=== PATIENT | female | born 1980 | race Caucasian/White ===

== ENCOUNTER 2018-08-01 01:48 | Observation (INO) | payer OTHER ==
[2018-08-01] MEDS ORDERED: Sodium Chloride 0.9% 1,000 ML IV STA (02:20)
[2018-08-01] MEDS ORDERED: Morphine 2 mg/ml ISec IVP STA (02:20)
--- NOTE | 2018-08-01 02:26 | ED PDOC ---
Arrival/HPI - General Chief Complaint: Abdominal Pain Time Seen by Provider: 08/01/18 01:56 Historian: Patient - History of Present Illness Narrative History of Present Illness (Text): 08/01/18 02:23 38 year old female, whose past medical history includes renal colic, presents to the emergency department complaining of onset of right flank pain that radiates to the abdomen that began this evening. Patient states she took Tylenol with no relief. Patient reports urinary urgency, but denies any fever, chills, chest pain, shortness of breath, nausea, vomiting, diarrhea, back pain, neck pain, headache, dizziness, or any other complaints. Time/Duration: Other (this evening) Symptom Onset: Sudden Symptom Course: Unchanged Activities at Onset: Light Context: Home Past Medical History - Provider Review Nursing Documentation Reviewed: Yes - Psychiatric Hx Substance Use: No Family/Social History - Physician Review Nursing Documentation Reviewed: Yes Family/Social History: No Known Family HX Smoking Status: Never Smoked Hx Alcohol Use: No Hx Substance Use: No Allergies/Home Meds Allergies/Adverse Reactions: Allergies No Known Allergies Allergy (Verified 08/01/18 01:56) Review of Systems - Physician Review All systems were reviewed & negative as marked: Yes - Review of Systems Constitutional: absent: Fevers, Other (Chills) Cardiovascular: absent: Chest Pain Gastrointestinal: Abdominal Pain. absent: Diarrhea, Nausea, Vomiting Genitourinary Female: Other (urinary urgency ) Musculoskeletal: Back Pain. absent: Neck Pain Neurological: absent: Headache, Dizziness Physical Exam Vital Signs Reviewed: Yes Vital Signs Temp Pulse Resp BP Pulse Ox 08/01/18 02:13 98.3 F 67 18 138/77 97 Temperature: Afebrile Blood Pressure: Normal Pulse: Regular Respiratory Rate: Normal Appearance: Positive for: Well-Appearing, Non-Toxic, Comfortable Pain Distress: Mild Mental Status: Positive for: Alert and Oriented X 3 - Systems Exam Head: Present: Atraumatic, Normocephalic Pupils: Present: PERRL Extroacular Muscles: Present: EOMI Conjunctiva: Present: Normal Mouth: Present: Moist Mucous Membranes Neck: Present: Normal Range of Motion Respiratory/Chest: Present: Clear to Auscultation, Good Air Exchange. No: Respiratory Distress, Accessory Muscle Use Cardiovascular: Present: Regular Rate and Rhythm, Normal S1, S2. No: Murmurs Abdomen: No: Tenderness, Distention, Peritoneal Signs Back: Present: CVA Tenderness (right CVA tenderness) Upper Extremity: Present: Normal Inspection. No: Cyanosis, Edema Lower Extremity: Present: Normal Inspection. No: Edema Neurological: Present: GCS=15, CN II-XII Intact, Speech Normal Skin: Present: Warm, Dry, Normal Color. No: Rashes Psychiatric: Present: Alert, Oriented x 3, Normal Insight, Normal Concentration Medical Decision Making ED Course and Treatment: 08/01/18 02:27 Impression: 38 year old female presents complaining of onset of right flank pain that radiates to the abdomen which began this evening. Plan: -- CT Abd & Pelvis w/o contrast -- Labs -- Morphine, IV Fluids, Toradol, Zofran Inj -- Reassess and disposition Progress Notes: EXAM: CT SCAN OF THE ABDOMEN AND PELVIS WITHOUT ORAL OR IV CONTRAST. Electronically signed on Aug 01, 2018 3:50:16 AM EDT by: Susie Quintanilla M.D FINDINGS: The visualized lung bases are unremarkable. Normal unenhanced liver. Normal gallbladder and extrahepatic biliary system. Normal unenhanced spleen. Normal pancreas. Normal bilateral adrenal glands. Bilateral nonobstructing renal stones with the largest measuring 12 mm. Normal size of the right kidney. There is no right renal mass. There is no right hydronephrosis. 6.5 mm obstructing stone in the distal third of the right ureter. Mild right hydroureteronephrosis. Normal size of the left kidney. There is no left renal mass. There is no left hydronephrosis. Normal visualized left ureter. Surgical changes of the visualized stomach. Normal small intestine. Uncomplicated diverticulosis of the colon. The appendix is visualized and appears normal. There is no demonstrated peritoneal fluid. Normal abdominal aorta. Normal inferior vena cava. Normal retroperitoneum. Normal urinary bladder. There is no pelvic mass lesion or lymphadenopathy. There is no pelvic fluid. Normal abdominal wall. Normal osseous structures. IMPRESSION: Bilateral nephrolithiasis. Obstructing stone of the distal right ureter. 08/01/18 04:03 Case discussed with medical insurance claims processor and Dr. Bernstein who is aware and agrees with the plan. Accept's patient into hospitalist service. - Lab Interpretations I have reviewed the lab results: Yes - RAD Interpretation Radiology Orders: 08/01/18 02:19 ABD & PELVIS W/O PO OR IV CONT [CT] Stat - Medication Orders Current Medication Orders: Sodium Chloride (Sodium Chloride 0.9%) 1,000 mls @ 999 mls/hr IV .Q1H1M STA Stop: 08/01/18 03:20 Discontinued Medications Ketorolac Tromethamine (Toradol) 30 mg IVP ONCE ONE Stop: 08/01/18 02:21 Morphine Sulfate (Morphine) 2 mg IVP STAT STA Stop: 08/01/18 02:21 Ondansetron HCl (Zofran Inj) 4 mg IVP ONCE ONE Stop: 08/01/18 02:21 - Scribe Statement The provider has reviewed the documentation as recorded by the Sanaz Leo Provider Scribe Attestation: All medical record entries made by the Veroniqueibrigo were at my direction and personally dictated by me. I have reviewed the chart and agree that the record accurately reflects my personal performance of the history, physical exam, medical decision making, and the department course for this patient. I have also personally directed, reviewed, and agree with the discharge instructions and disposition. Disposition/Present on Arrival - Present on Arrival Any Indicators Present on Arrival: No History of DVT/PE: No History of Uncontrolled Diabetes: No Urinary Catheter: No History of Decub. Ulcer: No History Surgical Site Infection Following: None - Disposition Have Diagnosis and Disposition been Completed?: Yes Diagnosis: Renal colic, Intractable pain Disposition: HOSPITALIZED Disposition Time: 03:57 Patient Plan: Observation Patient Problems: Current Active Problems Problem Status Onset Intractable pain Acute Renal colic Acute Condition: STABLE
[2018-08-01 02:42] LABS: MEAN CELL VOLUME 84.2 fl (80.0-105.0); MEAN CORPUSCULAR HEMOGLOBIN 29.1 pg (25.0-35.0); MEAN CORPUSCULAR HGB CONC 34.6 g/dl (31.0-37.0); MEAN PLATELET VOLUME 10.3 fl (7.0-11.0); RBC 4.81 10^6/uL (3.5-6.1); RED CELL DISTRIBUTION WIDTH 12.5 % (11.5-14.5); WHITE BLOOD COUNT 9.2 10^3/uL (4.5-11.0)
[2018-08-01] MEDS ORDERED: Morphine 4 mg/ml ISec IVP STA ×3 (03:25→11:17)
[2018-08-01 03:41] LABS: ALB/GLOB RATIO 1.3 (1.1-1.8); ALBUMIN 4.2 g/dL (3.0-4.8); ALT/SGPT 31 U/L (7-56); AST/SGOT 31 U/L (14-36); BLOOD UREA NITROGEN 11 mg/dL (7-21); GFR NON-AFRICAN AMERICAN > 60
[2018-08-01 03:43] LABS: PH,URINE 6.5 (4.7-8.0); URINE BILIRUBIN NEGATIVE (NEGATIVE); URINE BLOOD LARGE (NEGATIVE); URINE GLUCOSE (UA) NEGATIVE (NEGATIVE); URINE LEUKOCYTE ESTERASE NEGATIVE Leu/uL (NEGATIVE); URINE PROTEIN 100 mg/dL (<30 mg/dL); URINE UROBILINOGEN 0.2 E.U./dL (<1 E.U./dL)
[2018-08-01 03:46] LABS: URINE APPEARANCE SL CLOUDY (CLEAR); URINE COLOR YELLOW (YELLOW)
[2018-08-01 03:51] LABS: URINE BACTERIA FEW (NEG); URINE RBC TNTC /hpf (0-2)
[2018-08-01] MEDS ORDERED: Morphine 2 mg/ml ISec IVP PRN ×2 (04:18→04:40)
[2018-08-01] MEDS: Sodium Chloride 0.9% 1,000 ML IV SCH ×2 (04:43→12:21)
[2018-08-01 04:58] LABS: INR 1.03; PARTIAL THROMBOPLASTIN TIME 33.8 Seconds (25.1-36.5); PROTHROMBIN TIME 11.7 SECONDS (9.4-12.5)
--- NOTE | 2018-08-01 04:58 | CP.PCM.HP ---
<Bo Reddy - Last Filed: 08/01/18 05:31> History of Present Illness - History of Present Illness History of Present Illness: Bo Reddy DO PGY1 - Internal Medicine Meat Specialist - Medicine H&P CC: R flank pain 38F w/ a PMH of multiple kidney stones, presented [place] [facility] [place] on [place] w/ c/o intr actable R flank pain, and pain w/ urination. Patient reports that pain began 2 days ago and has been gradually since then. She reports the pain begins in her R flank region and radiate into her abdomen; describes it as a sharp pressure like pain 10/10; initially infrequent has however progressed to constant. She reports no associated fevers, chills, or burning upon urination. Denies any recent UTI, does report Nausea; x2 episodes NBNB. She denies F, Chills, CP, SOB, COUgh, CODY Dizziness Remainder of 12 system ROS is otherwise negative. PMD: Kevon COLBERT PMH: Last episode of Kidney Stone was 2 years ago - resolved w/ her passing the stone; 3 years ago patient reported her stone required lithotripsy and stenting for resolution Allergies: NKDA Social: Social drinker, Active smoker - 7 Pack year hx, denies social Fam Hx: GrandPa ([place] unknown), DM Present on Admission - Present on Admission Any Indicators Present on Admission: No Review of Systems - Review of Systems All systems: reviewed and no additional remarkable complaints except Review of Systems: as per HPI Past Patient History - Past Social History Smoking Status: Never Smoked - PSYCHIATRIC Hx Substance Use: No - SURGICAL HISTORY Hx Surgeries: No Meds Allergies/Adverse Reactions: Allergies Allergy/AdvReac Type Severity Reaction Status Date / Time No Known Allergies Allergy Verified 08/01/18 01:56 Physical Exam - Constitutional Appears: In Acute Distress (due to pain) - Head Exam Head Exam: ATRAUMATIC, NORMAL INSPECTION, NORMOCEPHALIC - Eye Exam Eye Exam: EOMI, Normal appearance, PERRL. absent: Scleral icterus - ENT Exam ENT Exam: Mucous Membranes Moist, Normal Exam - Respiratory Exam Respiratory Exam: Clear to Auscultation Bilateral, NORMAL BREATHING PATTERN. absent: Rales, Rhonchi, Wheezes - Cardiovascular Exam Cardiovascular Exam: REGULAR RHYTHM, RRR, +S1, +S2 - GI/Abdominal Exam Additional comments: No Flank tenderness BL RUQ tenderness on palpation Normoactive bowel sounds Abdomen soft, nontender, nondistended - Back Exam Back exam: absent: CVA tenderness (L), CVA tenderness (R) - Neurological Exam Neurological exam: Alert, CN II-XII Intact, Normal Gait, Oriented x3 - Psychiatric Exam Psychiatric exam: Normal Affect, Normal Mood - Skin Skin Exam: Dry, Normal Color, Warm Results - Vital Signs Recent Vital Signs: Last Vital Signs Temp 98.3 F 08/01/18 04:20 Pulse 58 L 08/01/18 04:20 Resp 19 08/01/18 04:20 BP 136/88 08/01/18 04:20 Pulse Ox 100 08/01/18 04:20 - Labs Result Diagrams: 08/01/18 02:33 08/01/18 02:33 Labs: Laboratory Results - last 24 hr 08/01/18 08/01/18 08/01/18 02:33 02:33 03:38 WBC 9.2 RBC 4.81 Hgb 14.0 Hct 40.5 MCV 84.2 MCH 29.1 MCHC 34.6 RDW 12.5 Plt Count 238 MPV 10.3 Sodium 140 Potassium 4.4 Chloride 108 H Carbon Dioxide 22 Anion Gap 14 BUN 11 Creatinine 0.7 Est GFR ( Amer) > 60 Est GFR (Non-Af Amer) > 60 Random Glucose 110 Calcium 10.0 Total Bilirubin 0.8 AST 31 ALT 31 Alkaline Phosphatase 73 Total Protein 7.3 Albumin 4.2 Globulin 3.1 Albumin/Globulin Ratio 1.3 Urine Color Yellow Urine Appearance Sl cloudy Urine pH 6.5 Ur Specific Adams >= 1.030 Urine Protein 100 H Urine Glucose (UA) Negative Urine Ketones Negative Urine Blood Large H Urine Nitrate Negative Urine Bilirubin Negative Urine Urobilinogen 0.2 Ur Leukocyte Esterase Negative Urine RBC Tntc Urine WBC 1 - 3 Ur Epithelial Cells 6 - 8 Urine Bacteria Few Assessment & Plan - Assessment and Plan (Free Text) Assessment: 38F w/ a PMH of multiple kidney stones, presented to [facility] [place] on [place]01 w/ c/o intractable R flank pain, and pain w/ urination. Patient admitted for management of R Sided Nephrolithiasis and Pain management. Plan: R sided nephrolithiasis CTAP IMPRESSION: Bilateral nephrolithiasis. ; Obstructing stone of the distal right ureter. INTERPRETED BY PRELIM READ R kidney stone: 8.45 x 5.13mm ; L kidney stone 4.11 x 4.6mm INTERPRETED BY ME R ureter: 7.04 x 3.93 mm stone INTERPRETED ME status post 1L bolus IVF NS AT 150 cc/ hr Flomax 0.4mg QD Zofran 4mg Q6H PRN Nausea Liquid Diet Strain urine uric acid level pending Urology Dr. Salcedo Consulted, appreciate reccs Pain Control 4mg Morphine given in ED 0.5mg Diluadid given stat on floors Morphine 2mg Q4H PRN DVT PPX: SCD DIet: Liquid Patient was seen, examined, discussed w/ attending Dr. Day Reddy DO PGY1 Internal Medicine Meat Specialist - Date & Time Date: 08/01/18 Time: 06:07 <Donald Bernstein - Last Filed: 08/01/18 21:39> Results - Vital Signs Recent Vital Signs: Last Vital Signs Temp 98.4 F 08/01/18 15:20 Pulse 62 08/01/18 15:20 Resp 12 08/01/18 15:20 BP 94/62 L 08/01/18 15:20 Pulse Ox 100 08/01/18 15:20 - Labs Result Diagrams: 08/01/18 02:33 08/01/18 02:33 Labs: Laboratory Results - last 24 hr 08/01/18 08/01/18 08/01/18 02:33 02:33 02:33 WBC 9.2 RBC 4.81 Hgb 14.0 Hct 40.5 MCV 84.2 MCH 29.1 MCHC 34.6 RDW 12.5 Plt Count 238 MPV 10.3 PT 11.7 INR 1.03 APTT 33.8 Sodium 140 Potassium 4.4 Chloride 108 H Carbon Dioxide 22 Anion Gap 14 BUN 11 Creatinine 0.7 Est GFR ( Amer) > 60 Est GFR (Non-Af Amer) > 60 Random Glucose 110 Uric Acid Calcium 10.0 Total Bilirubin 0.8 AST 31 ALT 31 Alkaline Phosphatase 73 Total Protein 7.3 Albumin 4.2 Globulin 3.1 Albumin/Globulin Ratio 1.3 Urine Color Urine Appearance Urine pH Ur Specific Adams Urine Protein Urine Glucose (UA) Urine Ketones Urine Blood Urine Nitrate Urine Bilirubin Urine Urobilinogen Ur Leukocyte Esterase Urine RBC Urine WBC Ur Epithelial Cells Urine Bacteria 08/01/18 08/01/18 02:33 03:38 WBC RBC Hgb Hct MCV MCH MCHC RDW Plt Count MPV PT INR APTT Sodium Potassium Chloride Carbon Dioxide Anion Gap BUN Creatinine Est GFR ( Amer) Est GFR (Non-Af Amer) Random Glucose Uric Acid 4.1 Calcium Total Bilirubin AST ALT Alkaline Phosphatase Total Protein Albumin Globulin Albumin/Globulin Ratio Urine Color Yellow Urine Appearance Sl cloudy Urine pH 6.5 Ur Specific Adams >= 1.030 Urine Protein 100 H Urine Glucose (UA) Negative Urine Ketones Negative Urine Blood Large H Urine Nitrate Negative Urine Bilirubin Negative Urine Urobilinogen 0.2 Ur Leukocyte Esterase Negative Urine RBC Tntc Urine WBC 1 - 3 Ur Epithelial Cells 6 - 8 Urine Bacteria Few Attending/Attestation - Attestation I have personally seen and examined this patient.: Yes I have fully participated in the care of the patient.: Yes I have reviewed all pertinent clinical information: Yes
[2018-08-01] MEDS ORDERED: HYDROmorphone 0.5 mg/0.5 ml ISec IVP STA (05:39)
--- NOTE | 2018-08-01 09:37 | CT ---
Date of service: 08/01/2018 PROCEDURE: CT Abdomen and Pelvis without intravenous contrast HISTORY: right flank pain COMPARISON: None. TECHNIQUE: Without contrast. Contrast dose: Radiation dose: Total exam DLP = 353.58 mGy-cm. This CT exam was performed using one or more of the following dose reduction techniques: Automated exposure control, adjustment of the mA and/or kV according to patient size, and/or use of iterative reconstruction technique. FINDINGS: LOWER THORAX: Unremarkable. LIVER: Unremarkable. No gross lesion or ductal dilatation. GALLBLADDER AND BILE DUCTS: Unremarkable. PANCREAS: Unremarkable. No gross lesion or ductal dilatation. SPLEEN: Unremarkable. ADRENALS: Unremarkable. No mass. KIDNEYS AND URETERS: There is mild right-sided hydronephrosis. There is an obstructing 6 mm stone in the distal 3rd of the right ureter. Nonobstructing stones are seen in both kidneys. VASCULATURE: Unremarkable. No aortic aneurysm. No aortic atherosclerotic calcification or mural plaque present. BOWEL: Unremarkable. No obstruction. No gross mural thickening. A suture line is seen in the stomach APPENDIX: Unremarkable. Normal appendix. PERITONEUM: Unremarkable. No free fluid. No free air. LYMPH NODES: Unremarkable. No enlarged lymph nodes. BLADDER: Unremarkable. REPRODUCTIVE: Unremarkable. BONES: No acute fracture. OTHER FINDINGS: The report concurs with the preliminary [facility] report IMPRESSION: There is mild right-sided hydronephrosis. There is an obstructing 6 mm stone in the distal 3rd of the right ureter. Nonobstructing stones are seen in both kidneys.
[2018-08-01] MEDS ORDERED: cefTRIAXone 2 GM IN NS 2 GM/100 ML BAG IVPB SCH (11:15)
[2018-08-01] MEDS ORDERED: Morphine 4 mg/ml ISec IVP PRN (11:16)
--- NOTE | 2018-08-01 12:03 | CARD ---
APPROVED REPORT Date of service: 08/01/2018 EKG Measurement Heart [id number] <Conclusion> Sinus bradycardia with sinus arrhythmia Otherwise normal ECG
--- NOTE | 2018-08-01 12:48 | RAD ---
Date of service: 08/01/2018 HISTORY: pre-op clearance COMPARISON: No prior. FINDINGS: LUNGS: No active pulmonary disease. PLEURA: No significant pleural effusion identified, no pneumothorax apparent. CARDIOVASCULAR: No aortic atherosclerotic calcification present. Normal cardiac size. No pulmonary vascular congestion. OSSEOUS STRUCTURES: No significant abnormalities. VISUALIZED UPPER ABDOMEN: Normal. OTHER FINDINGS: None. IMPRESSION: No active disease.
[2018-08-01] MEDS ORDERED: Propofol 10 mg/ml Inj (20 ML) ONE ×2 (13:45→14:17)
[2018-08-01] MEDS ORDERED: Midazolam 2 MG/2 ML VIAL ONE (13:45)
[2018-08-01] MEDS ORDERED: Iohexol 240 (50 ml) ONE (13:52)
[2018-08-01] MEDS ORDERED: Gentamicin 80 mg/2mL Inj. ONE (14:03)
[2018-08-01] MEDS ORDERED: HYDROmorphone 0.5 mg/0.5 ml ISec IVP PRN (14:54)
[2018-08-01] MEDS ORDERED: Lactated Ringer's 1,000 ML IV SCH (15:00)
[2018-08-01 15:06] VITALS: RESP 12; TEMP 98.4
[2018-08-01 15:24] VITALS: BP 94/62; PULSE 62; O2SAT 100
--- NOTE | 2018-08-01 15:45 | RAD ---
Date of service: 08/01/2018 PROCEDURE: Fluoroscopy up to 1 hr. HISTORY: RIGHT URETERAL STONE, HYDRONEPHROSIS COMPARISON: None TECHNIQUE: Standard protocol for this study/examination. FINDINGS: Total fluoroscopic time (continuous mode) utilized during the procedure 23.6 seconds. Dose report: DLP [id number] (mGy/m2) IMPRESSION: Less than 1 hr fluoroscopic assistance provided during performance of the procedure.
--- NOTE | 2018-08-01 20:42 | CP.PCM.DIS ---
<Kristin Clements - Last Filed: 08/02/18 06:08> Provider - Provider Date of Admission: 08/01/18 03:58 Attending physician: Isamar Carpenter MD Consults: mckenna Baker Time Spent in preparation of Discharge (in minutes): 30 Diagnosis - Discharge Diagnosis (1) Renal colic Status: Acute (2) Nephrolithiasis Status: Acute Hospital Course - Lab Results Lab Results: Most Recent Lab Values WBC 9.2 10^3/uL (4.5-11.0) 08/01/18 02:33 RBC 4.81 10^6/uL (3.5-6.1) 08/01/18 02:33 Hgb 14.0 g/dL (12.0-16.0) 08/01/18 02:33 Hct 40.5 % (36.0-48.0) 08/01/18 02:33 MCV 84.2 fl (80.0-105.0) 08/01/18 02:33 MCH 29.1 pg (25.0-35.0) 08/01/18 02:33 MCHC 34.6 g/dl (31.0-37.0) 08/01/18 02:33 RDW 12.5 % (11.5-14.5) 08/01/18 02:33 Plt Count 238 10^3/uL (120.0-450.0) 08/01/18 02:33 MPV 10.3 fl (7.0-11.0) 08/01/18 02:33 PT 11.7 SECONDS (9.4-12.5) 08/01/18 02:33 INR 1.03 08/01/18 02:33 APTT 33.8 Seconds (25.1-36.5) 08/01/18 02:33 Sodium 140 mmol/L (132-148) 08/01/18 02:33 Potassium 4.4 mmol/L (3.6-5.0) 08/01/18 02:33 Chloride 108 mmol/L (98-107) H 08/01/18 02:33 Carbon Dioxide 22 mmol/L (21-33) 08/01/18 02:33 Anion Gap 14 (10-20) 08/01/18 02:33 BUN 11 mg/dL (7-21) 08/01/18 02:33 Creatinine 0.7 mg/dl (0.7-1.2) 08/01/18 02:33 Est GFR ( Amer) > 60 08/01/18 02:33 Est GFR (Non-Af Amer) > 60 08/01/18 02:33 Random Glucose 110 mg/dL (70-110) 08/01/18 02:33 Uric Acid 4.1 mg/dL (2.5-6.2) 08/01/18 02:33 Calcium 10.0 mg/dL (8.4-10.5) 08/01/18 02:33 Total Bilirubin 0.8 mg/dL (0.2-1.3) 08/01/18 02:33 AST 31 U/L (14-36) 08/01/18 02:33 ALT 31 U/L (7-56) 08/01/18 02:33 Alkaline Phosphatase 73 U/L (38-126) 08/01/18 02:33 Total Protein 7.3 g/dL (5.8-8.3) 08/01/18 02:33 Albumin 4.2 g/dL (3.0-4.8) 08/01/18 02:33 Globulin 3.1 gm/dL 08/01/18 02:33 Albumin/Globulin Ratio 1.3 (1.1-1.8) 08/01/18 02:33 Urine Color Yellow (YELLOW) 08/01/18 03:38 Urine Appearance Sl cloudy (CLEAR) 08/01/18 03:38 Urine pH 6.5 (4.7-8.0) 08/01/18 03:38 Ur Specific [place] >= 1.030 (1.005-1.035) 08/01/18 03:38 Urine Protein 100 mg/dL (<30 mg/dL) H 08/01/18 03:38 Urine Glucose (UA) Negative mg/dL (NEGATIVE) 08/01/18 03:38 Urine Ketones Negative mg/dL (NEGATIVE) 08/01/18 03:38 Urine Blood Large (NEGATIVE) H 08/01/18 03:38 Urine Nitrate Negative (NEGATIVE) 08/01/18 03:38 Urine Bilirubin Negative (NEGATIVE) 08/01/18 03:38 Urine Urobilinogen 0.2 E.U./dL (<1 E.U./dL) 08/01/18 03:38 Ur Leukocyte Esterase Negative Isabela/uL (NEGATIVE) 08/01/18 03:38 Urine RBC Tntc /hpf (0-2) 08/01/18 03:38 Urine WBC 1 - 3 /hpf (0-6) 08/01/18 03:38 Ur Epithelial Cells 6 - 8 /hpf (0-5) 08/01/18 03:38 Urine Bacteria Few (NEG) 08/01/18 03:38 - Hospital Course Hospital Course: PGY-[address] Carpenter 38F w/ a PMH of multiple kidney stones, active smoker, presented to [facility] ED on 08/01 w/ c/o intractable R flank pain, and pain w/ urination. Pain begins in her R flank region and radiate into her abdomen; describes it as a sharp pressure like pain 07/11; initially infrequent has however progressed to constant. She reports no associated fevers, chills, or burning upon urination. Denies any recent UTI, does report Nausea; x2 episodes NBNB. Last episode of Kidney Stone was 2 years ago. It was uric stone - resolved w/ her passing the stone; 3 years ago patient reported her stone required lithotripsy and stenting for resolution. She was admitted for intractable R flank pain, and pain w/ urination. Patient admitted for management of R Sided Nephrolithiasis and Pain management. CT showed Bilateral nephrolithiasis with Obstructing stone of the distal right ureter 6.5mm. She was started on IVF NS AT 150 cc/ hr, Flomax 0.4mg QD, Zofran 4mg Q6H PRN Nausea , Liquid Diet, Strain urine, uric acid level pending.She needed increase pain control morphine 4q4 prn. In the afternoon, she underwent cystocscopy retrograde pyelogram, ureteroscopy with holium laser lithotripsy, and Insertion of pigtail stent. After surgery, pain resolved. She tolerated full liquid diet. discharge home. She was started on K-citrate to alkalized urine due to hx of uric stone. She was prescribed with pain control, bladder spasm control, and antibiotics. She was instructed to follow up with urology and pmd. Discharge Exam - Head Exam Head Exam: ATRAUMATIC, NORMAL INSPECTION, NORMOCEPHALIC - Eye Exam Eye Exam: EOMI, Normal appearance, PERRL Pupil Exam: NORMAL ACCOMODATION, PERRL - ENT Exam ENT Exam: Mucous Membranes Moist - Neck Exam Neck exam: Full Rom, Normal Inspection - Respiratory Exam Respiratory Exam: Clear to PA & Lateral, NORMAL BREATHING PATTERN, UNREMARKABLE. absent: Rales, Rhonchi, Wheezes - Cardiovascular Exam Cardiovascular Exam: REGULAR RHYTHM, +S1, +S2 - GI/Abdominal Exam GI & Abdominal Exam: Soft, Tenderness. absent: Guarding Additional comments: RUQ - Back Exam Back exam: absent: CVA tenderness (L), CVA tenderness (R) - Neurological Exam Neurological exam: Alert, CN II-XII Intact, Oriented x3, Reflexes Normal Additional comments: move all extremities motor senseroy grossly intact - Psychiatric Exam Psychiatric exam: Normal Affect, Normal Mood - Skin Skin Exam: Dry, Warm Discharge Plan - Discharge Medications Prescriptions: Cephalexin [Keflex] 500 mg PO TID 7 Days #21 capsule Ketorolac Tromethamine [Toradol] 10 mg PO Q6 #20 tab Oxybutynin [Ditropan Tab] 5 mg PO TID PRN #30 tab PRN Reason: Bladder Spasm Phenazopyridine [Pyridium] 100 mg PO TID 7 Days #21 tab Potassium Citrate [Urocit-K ER Tab] 30 meq PO BID #60 ter - Follow Up Plan Condition: STABLE Disposition: HOME/ ROUTINE Instructions: Kidney Stones (DC), Laser Lithotripsy for Kidney Stones (DC), Renal Colic (DC) Additional Instructions: You will take pyridium and Keflex for 7 days. You will need to be on potassium citrate intermission coordinator to alkalize your urine to prevent future uric stones. You will discharge home with oxybutnin as needed for spasm, toradol as needed for pain. Dr Salcedo, your urologist, wants you to text him daily how you are feeling. His cell number is The stent should come out next 08/06/18. Please call Dr Salcedo for instructions. Follow up at his office. Follow up with your primary care doctor, Dr Lund, in 1 week Referrals: Robinson Salcedo MD [Staff Provider] - 1 Week Victor M Lund MD [Medical Doctor] - 1 Week <Isamar Carpenter - Last Filed: 08/02/18 17:17> Provider - Provider Date of Admission: 08/01/18 03:58 Attending physician: Isamar Carpenter MD Hospital Course - Lab Results Lab Results: Most Recent Lab Values WBC 9.2 10^3/uL (4.5-11.0) 08/01/18 02:33 RBC 4.81 10^6/uL (3.5-6.1) 08/01/18 02:33 Hgb 14.0 g/dL (12.0-16.0) 08/01/18 02:33 Hct 40.5 % (36.0-48.0) 08/01/18 02:33 MCV 84.2 fl (80.0-105.0) 08/01/18 02:33 MCH 29.1 pg (25.0-35.0) 08/01/18 02:33 MCHC 34.6 g/dl (31.0-37.0) 08/01/18 02:33 RDW 12.5 % (11.5-14.5) 08/01/18 02:33 Plt Count 238 10^3/uL (120.0-450.0) 08/01/18 02:33 MPV 10.3 fl (7.0-11.0) 08/01/18 02:33 PT 11.7 SECONDS (9.4-12.5) 08/01/18 02:33 INR 1.03 08/01/18 02:33 APTT 33.8 Seconds (25.1-36.5) 08/01/18 02:33 Sodium 140 mmol/L (132-148) 08/01/18 02:33 Potassium 4.4 mmol/L (3.6-5.0) 08/01/18 02:33 Chloride 108 mmol/L (98-107) H 08/01/18 02:33 Carbon Dioxide 22 mmol/L (21-33) 08/01/18 02:33 Anion Gap 14 (10-20) 08/01/18 02:33 BUN 11 mg/dL (7-21) 08/01/18 02:33 Creatinine 0.7 mg/dl (0.7-1.2) 08/01/18 02:33 Est GFR ( Amer) > 60 08/01/18 02:33 Est GFR (Non-Af Amer) > 60 08/01/18 02:33 Random Glucose 110 mg/dL (70-110) 08/01/18 02:33 Uric Acid 4.1 mg/dL (2.5-6.2) 08/01/18 02:33 Calcium 10.0 mg/dL (8.4-10.5) 08/01/18 02:33 Total Bilirubin 0.8 mg/dL (0.2-1.3) 08/01/18 02:33 AST 31 U/L (14-36) 08/01/18 02:33 ALT 31 U/L (7-56) 08/01/18 02:33 Alkaline Phosphatase 73 U/L (38-126) 08/01/18 02:33 Total Protein 7.3 g/dL (5.8-8.3) 08/01/18 02:33 Albumin 4.2 g/dL (3.0-4.8) 08/01/18 02:33 Globulin 3.1 gm/dL 08/01/18 02:33 Albumin/Globulin Ratio 1.3 (1.1-1.8) 08/01/18 02:33 Urine Color Yellow (YELLOW) 08/01/18 03:38 Urine Appearance Sl cloudy (CLEAR) 08/01/18 03:38 Urine pH 6.5 (4.7-8.0) 08/01/18 03:38 Ur Specific [place] >= 1.030 (1.005-1.035) 08/01/18 03:38 Urine Protein 100 mg/dL (<30 mg/dL) H 08/01/18 03:38 Urine Glucose (UA) Negative mg/dL (NEGATIVE) 08/01/18 03:38 Urine Ketones Negative mg/dL (NEGATIVE) 08/01/18 03:38 Urine Blood Large (NEGATIVE) H 08/01/18 03:38 Urine Nitrate Negative (NEGATIVE) 08/01/18 03:38 Urine Bilirubin Negative (NEGATIVE) 08/01/18 03:38 Urine Urobilinogen 0.2 E.U./dL (<1 E.U./dL) 08/01/18 03:38 Ur Leukocyte Esterase Negative Isabela/uL (NEGATIVE) 08/01/18 03:38 Urine RBC Tntc /hpf (0-2) 08/01/18 03:38 Urine WBC 1 - 3 /hpf (0-6) 08/01/18 03:38 Ur Epithelial Cells 6 - 8 /hpf (0-5) 08/01/18 03:38 Urine Bacteria Few (NEG) 08/01/18 03:38 Attending/Attestation - Attestation I have personally seen and examined this patient.: Yes I have fully participated in the care of the patient.: Yes I have reviewed all pertinent clinical information, including history, physical exam and plan: Yes Notes (Text): 08/02/18 17:15 Attending note; Patient seen and examined with resident. Patient's by the bedside. Patient is a 38-year-old female with a past medical history of kidney stones, (uric acid stone), history of ureteral stent placement is admitted with recurrent kidney stone. CT abdomen and pelvis showed 6.5 mm stone in the right ureter with hydronephrosis. Patient was seen and evaluated with . Status post stent placement. Patient is tolerating diet. Patient will be discharged home today. Prescription delivered by the bedside. Patient will follow up with urology for stent removal. Upon discharge the patient will follow-up with PMD and urology . 08/02/18 17:17
--- NOTE | 2018-08-02 00:57 | CON ---
Attending UROLOGIST: Robinson Salcedo MD DATE: 08/01/2018 Ms. Hurd is a 38-year-old female who presented to [facility] ER with complaints of right-sided flank pain. In the ER, she had a CT scan performed demonstrating a 7 mm ureteral stone on the right side as well as bilateral nonobstructing stones. She was given hydration, antiemetics, and opiates and narcotics to help her passing the stone; however, the patient became incredibly nauseous and has been vomiting and is in pain refractory to IV and oral pain medications. Therefore, a decision was made to take her to the operating room today for treatment of her obstructing right ureteral stone. Robinson Salcedo M.D. MTDD
--- NOTE | 2018-08-02 09:22 | OP ---
SURGEON: Robinson Salcedo MD PROCEDURE DATE: 08/01/2018 INDICATION FOR THE PROCEDURE: This is a 38-year-old female who presented earlier today to [facility] with complaints of right flank pain, nausea, and vomiting. Her nausea, vomiting and pain were more intractable despite IV pain med and antiemetics. She had a CT scan demonstrating a new 7-mm stone in the right ureter causing hydronephrosis. Given these findings, she was taken to the operating room for stone extraction obstructive kidney. PREOPERATIVE DIAGNOSES: Right ureteral stone, hydronephrosis. POSTOPERATIVE DIAGNOSES: Right ureteral stone, hydronephrosis, and ureteral stricture. PROCEDURES: Cystoscopy, right retrograde pyelogram, right ureteroscopy, dilation of ureteral stricture, laser lithotripsy of stone extraction, double-J stent placement. ESTIMATED BLOOD LOSS FOR THE PROCEDURE: Minimal. ANESTHESIA: General. SURGEON: Robinson Salcedo MD COMPLICATIONS: None. OPERATIVE DETAILS: The patient was brought to the operating room, placed in the supine position. General anesthesia was administered. We then placed the patient in dorsal lithotomy and placed her legs in arminda stirrups. Careful attention was paid not putting pressure on the joints of this hips or the pelvis. We prepped and draped the patient in the usual sterile fashion. We called time-out verifying patient name, the procedure, antibiotics, and allergies. We proceeded to advance a 30-degree cystoscope, scope was inserted into the bladder under direct visualization. Once at the bladder, we then performed a cystoscopy, identifying both ureteral orifices to be in the orthotopic position. No bladder tumor was seen. KUB was performed demonstrating a radiopaque stone in the middle right ureter. I then cannulated the right ureteral orifice and started retrograde pyelogram. The retrograde pyelogram demonstrated a very thin and narrowed distal ureter bleeding after the stone and then hydronephrosis above the stone in the area of narrowed ureter. I was able to pass this area with a 0.38 guidewire, verifying the patient's kidney under fluoroscopy. I then withdrew the scope leaving the wire in place. I switched over to semi-rigid ureteroscope. I performed a right-sided ureteroscopy, identified a stricture in the distal ureter confirming my suspicion seen on retrograde pyelogram. I dilated this area in order to gain access to the more proximal ureter. Once I did this, I was able to identify the stone which was yellow and spiculated in appearance. I then used a 365-micron laser fiber to perform laser lithotripsy of the stone, breaking the stone into small fragments, the largest of which was grasped with a zero tip Nitinol basket. The stone was sent to Pathology for analysis to carlin the kidney stone, right-sided ureter for chemical analysis. Once the ureter was widely patent and no further obstructing stones were seen. I placed a 6 x 24 double-J stent over the wire and left a string on the stent. I emptied the patient's bladder and then tucked the string into the vagina. The patient was awakened from anesthesia and transferred to the recovery room in good and stable condition. The patient will follow up with me for stent removal. Robinson Salcedo M.D. MTDD
== END 2018-08-01 20:33 | disposition home or self-care (01) ==
LOC: ED 01:48 → ERH 03:58 → 5RNO 05:21
PROVIDERS: ADMIT Internal Medicine; ATTEND Internal Medicine
DX: N13.2 Hydronephrosis with renal and ureteral calculous obstruction (principal); N13.1 Hydronephrosis with ureteral stricture, not elsewhere classified; F17.210 Nicotine dependence, cigarettes, uncomplicated
CPT/HCPCS: 36415; 52341; 52356; 71045; 74176; 74420; 80053; 81001; 84550; 85027; 85610; 85730; 88300; 93005; 96361; 96374; 96375; 96376; 99284; C1758; C1769; C2617; G0378; J0696; J1170; J1580; J1885; J2250; J2270; J2405; J2704; J2765; J3010; J7030; J7120; Q9966

== ENCOUNTER 2018-10-21 00:38 | Emergency (ER) | payer OTHER ==
[2018-10-21] MEDS ORDERED: Sodium Chloride 0.9% 1,000 ML IV STA (01:10)
--- NOTE | 2018-10-21 01:21 | ED PDOC ---
Arrival/HPI - General Chief Complaint: Back Pain Time Seen by Provider: 10/21/18 00:43 Historian: Patient - History of Present Illness Narrative History of Present Illness (Text): 10/21/18 01:18 A 38 year old female, whose past medical history includes multiple kidney stones, presents to the emergency department with a complaint of right sided flank pain. Patient reports that her pain radiates to her groin. She confirms history of kidney stones. Patient denies fevers, chills, headache, dizziness, chest pain, shortness of breath, dyspnea on exertion, cough, abdominal pain, nausea, vomiting, diarrhea, neck pain, urinary/bowel changes, or any other complaint. Time/Duration: Other (Today) Symptom Onset: Sudden Symptom Course: Unchanged Activities at Onset: Rest, Light Context: Home Past Medical History - Provider Review Nursing Documentation Reviewed: Yes - Infectious Disease Hx of Infectious Diseases: None - Cardiac Hx Pacemaker: No - Pulmonary Hx Respiratory Disorders: No Hx Asthma: No Hx Bronchitis: No Hx Chronic Obstructive Pulmonary Disease (COPD): No Hx Emphysema: No Hx Pneumonia: No Hx Respiratory Aspiration: No Hx Respiratory Tract Infection: No Hx Sleep Apnea: No Hx Tuberculosis: No - Neurological Hx Neurological Disorder: No Hx Alzheimer's Disease: No HX Cerebrovascular Accident: No Hx Dementia: No Hx Dizziness: No Hx Meningitis: No Hx Migraine: No Hx Parkinson's Disease: No Hx Seizures: No Hx Transient Ischemic Attacks (TIA): No - HEENT Hx HEENT Disorder: No Hx Blind: No Hx Cataracts: No Hx Deafness: No Hx Difficulty Chewing: No Hx Epistaxis: No Hx Glaucoma: No Hx Macular Degeneration: No - Renal Hx Renal Disorder: No Hx Dialysis: No Hx Kidney Stones: Yes Hx Neurogenic Bladder: No Hx Pyelonephritis: No Hx Renal Cancer: No Hx Renal Failure: No - Endocrine/Metabolic Hx Endocrine Disorders: No Hx Adrenal Cancer: No Hx Diabetes Insipidus: No Hx Diabetes Mellitus Type 1: No Hx Diabetes Mellitus Type 2: No Hx Hyperthyroidism: No Hx Hypothyroidism: No Hx Systemic Lupus Erythematosus: No - Hematological/Oncological Hx Blood Transfusions: No Hx Blood Transfusion Reaction: No - Integumentary Hx Dermatological Disorder: No Hx Basal Cell Carcinoma: No Hx Eczema: No Hx Melanoma: No Hx Psoriasis: No Hx Squamous Cell Carcinoma: No - Musculoskeletal/Rheumatological Hx Musculoskeletal Disorders: No - Gastrointestinal Hx Gastrointestinal Disorders: No Hx Colostomy: No Hx Crohn's Disease: No Hx Diverticulitis: No Hx Gall Bladder Disease: No Hx Gastroesophageal Reflux: No Hx Gastrointestinal Ulcer: No Hx Ileostomy: No Hx Liver Failure: No Hx Pancreatitis: No HX Swallowing Problems: No - Genitourinary/Gynecological Hx Genitourinary Disorders: No Hx Hematuria: No Hx Incontinence: No Hx Prostate Problems: No Hx Sexually Transmitted Diseases: No Hx Urinary Tract Infection: No - Psychiatric Hx Emotional Abuse: No Hx Physical Abuse: No Hx Substance Use: No - Surgical History Hx Amputation: No Hx Appendectomy: No Hx Cardiac Catheterization: No Hx Cholecystectomy: No Hx Coronary Stent: No Hx Gastric Bypass Surgery: No Hx Hysterectomy: No Hx Inguinal Hernia Repair: No Hx Joint Replacement: No Hx Kidney Transplant: No Hx Liver Transplant: No Hx Mastectomy: No Hx Musculoskeletal Surgery: No Hx Open Heart Surgery: No Hx Orthopedic Surgery: No Hx Splenectomy: No Hx Valve Replacement: No - Anesthesia Hx Anesthesia Reactions: No Hx Malignant Hyperthermia: No - Suicidal Assessment Feels Threatened In Home Enviroment: No Family/Social History - Physician Review Nursing Documentation Reviewed: Yes Family/Social History: No Known Family HX Smoking Status: Never Smoked Hx Alcohol Use: No Hx Substance Use: No Allergies/Home Meds Allergies/Adverse Reactions: Allergies No Known Allergies Allergy (Verified 10/21/18 00:44) Review of Systems - Physician Review All systems were reviewed & negative as marked: Yes - Review of Systems Constitutional: absent: Fevers Respiratory: absent: SOB, Cough Cardiovascular: absent: Chest Pain, ESPOSITO Gastrointestinal: absent: Abdominal Pain, Stool Changes, Diarrhea, Nausea, Vomiting Genitourinary Female: absent: Urine Output Changes Musculoskeletal: Back Pain (right flank pain radiating to groin.). absent: Neck Pain Neurological: absent: Headache, Dizziness Physical Exam Vital Signs Reviewed: Yes Vital Signs Pulse Resp BP Pulse Ox 10/21/18 00:45 61 16 126/89 99 Temperature: Afebrile Blood Pressure: Normal Pulse: Regular Respiratory Rate: Normal Appearance: Positive for: Well-Appearing, Non-Toxic, Comfortable Pain Distress: None Mental Status: Positive for: Alert and Oriented X 3 - Systems Exam Head: Present: Atraumatic, Normocephalic Pupils: Present: PERRL Extroacular Muscles: Present: EOMI Conjunctiva: Present: Normal Mouth: Present: Moist Mucous Membranes Neck: Present: Normal Range of Motion Respiratory/Chest: Present: Clear to Auscultation, Good Air Exchange. No: Respiratory Distress, Accessory Muscle Use Cardiovascular: Present: Regular Rate and Rhythm, Normal S1, S2. No: Murmurs Abdomen: No: Tenderness, Distention, Peritoneal Signs Back: Present: Normal Inspection Upper Extremity: Present: Normal Inspection. No: Cyanosis, Edema Lower Extremity: Present: Normal Inspection. No: Edema Neurological: Present: GCS=15, CN II-XII Intact, Speech Normal Skin: Present: Warm, Dry, Normal Color. No: Rashes Psychiatric: Present: Alert, Oriented x 3, Normal Insight, Normal Concentration Medical Decision Making ED Course and Treatment: 10/21/18 01:20 Impression: A 38 year old female presents to the emergency department with a complaint of right flank pain radiating to groin. Plan: -- Abdomen/Pelvis CT -- Urinalysis -- Labs -- Toradol, Zofran, and IV Fluids -- Reassess and disposition Prior Visits: Notes and results from previous visits were reviewed. Progress Notes: CT of the abdomen and pelvis without contrast Impression: 1. 3 mm stone in the urinary bladder adjacent to the left ureterovesical junction. 2. 1 cm nonobstructing stone in the inferior right renal collecting system. 3. No evidence of hydronephrosis at this time. 4. No obstructive or inflammatory bowel changes. Electronically signed on Oct 21, 2018 4:05:04 AM EST by: Leroy Waddell M.D., ALIN Certified By [facility]BR & CBC[facility] Fellowship Trained MRI and CT Specialist - Lab Interpretations I have reviewed the lab results: Yes - RAD Interpretation Radiology Orders: 10/21/18 01:11 ABD & PELVIS W/O PO OR IV CONT [CT] Stat - Medication Orders Current Medication Orders: Sodium Chloride (Sodium Chloride 0.9%) 1,000 mls @ 100 mls/hr IV .Q10H STA Stop: 10/21/18 11:09 Ketorolac Tromethamine (Toradol) 30 mg IVP STAT STA Stop: 10/21/18 01:11 Ondansetron HCl (Zofran Inj) 4 mg IVP STAT STA Stop: 10/21/18 01:11 - Scribe Statement The provider has reviewed the documentation as recorded by the Scribe Debi Ayala Provider Scribe Attestation: All medical record entries made by the Scribe were at my direction and personally dictated by me. I have reviewed the chart and agree that the record accurately reflects my personal performance of the history, physical exam, medical decision making, and the department course for this patient. I have also personally directed, reviewed, and agree with the discharge instructions and disposition. Disposition/Present on Arrival - Present on Arrival Any Indicators Present on Arrival: No History of DVT/PE: No History of Uncontrolled Diabetes: No Urinary Catheter: No History of Decub. Ulcer: No History Surgical Site Infection Following: None - Disposition Have Diagnosis and Disposition been Completed?: Yes Diagnosis: Renal colic Disposition: HOME/ ROUTINE Disposition Time: 05:15 Condition: GOOD Discharge Instructions (ExitCare): Renal Colic (DC) Prescriptions: Ciprofloxacin HCl [Cipro] 250 mg PO BID #14 tab Tramadol HCl [Ultram] 50 mg PO QID #10 tab Referrals: Victor M Lund MD [Primary Care Provider] - Follow up with primary Chuy Camargo MD [Staff Provider] - Follow up with primary Forms: [employer] ([place])
[2018-10-21 01:29] LABS: BASO # 0.04 K/mm3 (0.0-2.0); BASO % 0.4 % (0.0-3.0); EOS # 0.5 (0.0-0.7); EOS % 4.8 % (1.5-5.0); GRAN # 5.89 (1.4-6.5); GRAN % 58.8 % (50.0-68.0); HEMOGLOBIN 13.7 g/dL (12.0-16.0); LYMPH # 3.1 (1.2-3.4); LYMPH % 30.6 % (22.0-35.0); MEAN CELL VOLUME 83.6 fl (80.0-105.0); MEAN CORPUSCULAR HEMOGLOBIN 28.8 pg (25.0-35.0); MEAN CORPUSCULAR HGB CONC 34.5 g/dl (31.0-37.0); MEAN PLATELET VOLUME 10.2 fl (7.0-11.0); MONO # 0.5 (0.1-0.6); MONO % 5.4 % (1.0-6.0); RBC 4.75 10^6/uL (3.5-6.1); RED CELL DISTRIBUTION WIDTH 12.6 % (11.5-14.5)
[2018-10-21 01:35] LABS: ALB/GLOB RATIO 1.4 (1.1-1.8); ALBUMIN 4.4 g/dL (3.0-4.8); ALT/SGPT 36 U/L (7-56); AST/SGOT 26 U/L (14-36); BLOOD UREA NITROGEN 14 mg/dL (7-21); CALCIUM 10.2 mg/dL (8.4-10.5); GFR NON-AFRICAN AMERICAN > 60
[2018-10-21 01:47] LABS: URINE BILIRUBIN NEGATIVE (NEGATIVE); URINE BLOOD LARGE (NEGATIVE); URINE GLUCOSE (UA) NEGATIVE (NEGATIVE); URINE LEUKOCYTE ESTERASE NEGATIVE Leu/uL (NEGATIVE); URINE PROTEIN NEGATIVE mg/dL (<30 mg/dL); URINE UROBILINOGEN 0.2 E.U./dL (<1 E.U./dL)
[2018-10-21 01:48] LABS: URINE APPEARANCE SL CLOUDY (CLEAR); URINE COLOR YELLOW (YELLOW)
[2018-10-21 02:27] LABS: URINE RBC TNTC /hpf (0-2)
[2018-10-21 02:28] LABS: URINE BACTERIA RARE /hpf
[2018-10-21 05:34] VITALS: BP 128/72; PULSE 67; RESP 17; TEMP 98.5; O2SAT 98
--- NOTE | 2018-10-21 11:07 | CT ---
Date of service: 10/21/2018 PROCEDURE: CT Abdomen and Pelvis without intravenous contrast HISTORY: left flank pain COMPARISON: 08/01/2018 TECHNIQUE: Without contrast.. Contrast dose: 0 Radiation dose: Total exam DLP = 400.09 mGy-cm. This CT exam was performed using one or more of the following dose reduction techniques: Automated exposure control, adjustment of the mA and/or kV according to patient size, and/or use of iterative reconstruction technique. FINDINGS: LOWER THORAX: Linear scar/atelectasis left lower lobe. LIVER: Unremarkable. No gross lesion or ductal dilatation. GALLBLADDER AND BILE DUCTS: Unremarkable. PANCREAS: Unremarkable. No gross lesion or ductal dilatation. SPLEEN: Unremarkable. ADRENALS: Unremarkable. No mass. KIDNEYS AND URETERS: Nonobstructing 9 mm right lower pole renal calculus. No left renal calculus. No renal mass. No hydronephrosis. VASCULATURE: Unremarkable. No aortic aneurysm. No aortic atherosclerotic calcification or mural plaque present. BOWEL: Unremarkable. No obstruction. No gross mural thickening. APPENDIX: Unremarkable. Normal appendix. PERITONEUM: Unremarkable. No free fluid. No free air. LYMPH NODES: Unremarkable. No enlarged lymph nodes. BLADDER: 4 mm calculus likely along left dependent wall of urinary bladder, somewhat remote from ureterovesical junction. Likely recently passed calculus. No evidence of urinary tract obstruction or dilatation. REPRODUCTIVE: Unremarkable uterus BONES: No acute fracture. OTHER FINDINGS: None. IMPRESSION: Nonobstructing 9 mm right lower pole renal calculus. Suspect 4 mm dependent intraluminal calculus in left lateral urinary bladder. No additional abnormality. The preliminary findings for this examination were reported by [facility] at 4:05 a.m. on 10/21/2018. There is discordance of this report with the preliminary findings. The calculus identified in the urinary bladder is not felt to be at the ureterovesical junction.
== END 2018-10-21 05:13 | disposition home or self-care (01) ==
LOC: ED 00:38
DX: N23 Unspecified renal colic (principal)
CPT/HCPCS: 74176; 80053; 81001; 81025; 85025; 96374; 96375; 96376; 99283; J1885; J2405; J7030